=== PATIENT | female | born 1955 | race Caucasian/White ===

== ENCOUNTER 2018-07-08 13:15 | Outpatient (RCR) | payer MEDICARE, SELFPAY | END 2018-07-08 23:59 | disposition home or self-care (01) | LOC: INF 13:15 | PROVIDERS: PCP Nurse Practitioner Family; Visit Provider Nurse Practitioner Family | DX: R69 Illness, unspecified (principal) ==

== ENCOUNTER 2018-07-09 06:57 | Outpatient (RCR) | payer MEDICARE, SELFPAY ==
[2018-07-09] MEDS: Normal Saline Flush 10 ML SYR IVP (12:23)
[2018-07-09] MEDS: Heparin 500 UNITS/5 ML SYRINGE (12:24)
== END 2018-08-07 23:59 | disposition home or self-care (01) ==
LOC: INF 06:57
PROVIDERS: PCP Nurse Practitioner Family; Visit Provider Nurse Practitioner Family
DX: Z45.2 Encounter for adjustment and management of vascular access device (principal)
CPT/HCPCS: 96523

== ENCOUNTER 2018-08-21 01:19 | Outpatient (RCR) | payer MEDICARE, SELFPAY | END 2018-09-07 23:59 | disposition home or self-care (01) | LOC: INF 01:19 | PROVIDERS: PCP Nurse Practitioner Family; Visit Provider Nurse Practitioner Family | DX: Z45.2 Encounter for adjustment and management of vascular access device (principal) ==

== ENCOUNTER 2018-09-11 13:16 | Outpatient (RCR) | payer MEDICARE, SELFPAY ==
[2018-09-11] MEDS: Heparin 500 UNITS/5 ML SYRINGE IV (13:42)
[2018-09-11] MEDS: Normal Saline Flush 10 ML SYR IVP (13:42)
== END 2018-10-07 23:59 | disposition home or self-care (01) ==
LOC: INF 13:16
PROVIDERS: PCP Nurse Practitioner Family; Visit Provider Nurse Practitioner Family
DX: Z45.2 Encounter for adjustment and management of vascular access device (principal)
CPT/HCPCS: 96523

== ENCOUNTER 2018-10-25 01:39 | Outpatient (RCR) | payer MEDICARE, SELFPAY | END 2018-11-07 23:59 | disposition home or self-care (01) | LOC: INF 01:39 | PROVIDERS: PCP Nurse Practitioner Family; Visit Provider Nurse Practitioner Family | DX: R69 Illness, unspecified (principal) ==